=== PATIENT | female | born 1995 | race Caucasian/White ===

== ENCOUNTER → 2018-10-31 | Outpatient (CLI) | payer BC ==
--- NOTE | 2018-10-31 12:21 | Diagnostic Imaging Report ---
INDICATION: Goiter. No prior studies are available for comparison. The right lobe of the thyroid measures 5.3 x 1.5 x 1.8 cm and the left lobe measures 4.5 x 1.5 x 1.6 cm. Both lobes do show some parenchymal heterogeneity but no discrete thyroid mass is detected. IMPRESSION: Thyroid heterogeneity. No discrete mass is detected. Dictated by: Dictated on workstation # [id number]
== END ==
LOC: RAD 11:48
PROVIDERS: ATTEND Pediatrics
DX: E04.9 Nontoxic goiter, unspecified (principal)
CPT/HCPCS: 76536

== ENCOUNTER → 2018-11-06 | Outpatient (CLI) | payer BC | LOC: LAB 17:37 | PROVIDERS: ATTEND Pediatrics | DX: R04.0 Epistaxis (principal) ==

== ENCOUNTER → 2018-11-07 | Outpatient (CLI) | payer BC ==
[2018-11-07 11:19] LABS: HEMATOCRIT 38 % (35-52); HEMOGLOBIN 12.6 G/DL (11.5-16.0); MEAN CORPUSCULAR HEMOGLOBIN 31 PG (25-34); MEAN CORPUSCULAR HGB CONC 33 G/DL (32-36); MEAN CORPUSCULAR VOLUME 94 FL (80-99); WHITE BLOOD COUNT 6.8 10^3/uL (4.3-11.0)
[2018-11-07 11:20] LABS: BASOPHILS % (AUTO) 0 % (0-10); EOSINOPHILS # (AUTO) 0.1 10^3/uL (0.0-0.3); EOSINOPHILS % (AUTO) 1 % (0-10); LYMPHOCYTES % (AUTO) 30 % (12-44); MEAN PLATELET VOLUME 11.1 FL (7.4-10.4); MONOCYTES # (AUTO) 0.7 X 10^3 (0.0-1.0); MONOCYTES % (AUTO) 10 % (0-12); NEUTROPHILS % (AUTO) 59 % (42-75); PLATELET COUNT 224 10^3/uL (130-400); RED CELL DISTRIBUTION WIDTH 12.7 % (10.0-14.5)
== END ==
LOC: LAB FS 10:53
PROVIDERS: ATTEND Pediatrics
DX: R04.0 Epistaxis (principal)
CPT/HCPCS: 36415; 85025

== ENCOUNTER → 2021-05-17 | Outpatient (CLI) | payer BC | LOC: LAB FS 16:01 | PROVIDERS: ATTEND Pediatrics | DX: A04.72 Enterocolitis due to Clostridium difficile, not specified as recurrent (principal) | CPT/HCPCS: 87324; 87449 ==